=== PATIENT | female | born 1935 | race Caucasian/White ===

== ENCOUNTER 2018-03-13 13:01 | Inpatient (IN) | payer MEDICARE, OTHER ==
[~2018-03-13] VITALS: Ht 152.4 cm; Wt 60.1 kg
--- NOTE | ~2018-03-13 | EKG ---
[place], [place] ELECTROCARDIOGRAM REPORT NAME: MARI NAVARRO UNIT #: [id number] ROOM: 411 DOCTOR: CALI DRAFT REPORT BIRTHDATE: [birth year] [facility] Test Date: 2018-03-13 Test Time: 15:06:36 Pat Name: MARI NAVARRO Department: Room: 411 Gender: F Shirrer: Saige Carl : 1935 Requested By: STEPHANIE MUSA PA-C Order Number: [id number] Reading MD: Kristy Russell MD Measurements Intervals [place] Rate: 68 P: 46 DE: 167 QRS: -19 QRSD: 106 T: -9 QT: 397 QTc: 423 Interpretive Statements Sinus rhythm Left ventricular hypertrophy Inferior infarct, age indeterminate Anterior Q waves, possibly due to LVH Electronically Signed On 03-14-2018 11:10:57 PST by Kristy Russell MD CM:EKGRPT:ELECTROCARDIOGRAM REPORT [id number] STEPHANIE MUSA PA-C EPIPHANY DRAFT REPORT STEPHANIE MUSA PA-C
[~2018-03-13 13:01] MED LIST: 'zithromax250 MG PO; ASPIRIN162 MG PO; ATIVAN0.5 MG PO; CIPROFLOXACIN500 MG PO; DELTASONE10 MG PO; FISH OIL1000 MG PO; IMDUR SA60 M1 PO; MOTRIN800 MG PO; PEPCID20 MG PO; PLAVIX75 MG PO; PREDNISONE5 MG PO; SIMVASTATIN10 MG PO; ZIAC 5 MG-6.251 TAB PO
[2018-03-13 13:07] VITALS: BP 163/37
[2018-03-13 14:49] LABS: BILIRUBIN NEGATIVE (NEGATIVE); BLOOD NEGATIVE (NEGATIVE); CLARITY SL CLOUDY (CLEAR); COLOR YELLOW (YELLOW); GLUCOSE NEGATIVE (NEGATIVE); KETONE 1+ (NEGATIVE); LEUKO ESTERASE 1+ (NEGATIVE); NITRITE POSITIVE (NEGATIVE); SPECIFIC GRAVITY 1.015 (1.005-1.030); UROBILINOGEN 0.2 E.U./dl (0.2-1.0)
[2018-03-13 15:07] LABS: BACTERIA 4+; WBC 31-40 wbc/hpf (0-5)
[2018-03-13 15:38] LABS: BASO % 0.3 % (0.0-1.0); EOS % 0.3 % (1.0-4.0); HEMATOCRIT 32.9 % (37.0-47.0); HEMOGLOBIN 11.5 g/dl (12.0-16.0); LYMPH # 1.8 10*3/uL (1.3-4.4); LYMPH % 19.2 % (27.0-41.0); MEAN CELL VOLUME 94.5 fl (81.0-99.0); MEAN PLATELET VOLUME 9.3 fl (9.6-12.3); MONO % 10.7 % (3.0-9.0); NEUT # 6.5 10*3/uL (2.3-7.9); NEUT % 69.1 % (47.0-73.0); PLATELET COUNT AUTOMATED 261 10*3/uL (130-400); RED BLOOD COUNT 3.48 10*6/uL (4.10-5.10); WHITE BLOOD COUNT 9.4 10*3/uL (4.8-10.8)
[2018-03-13 15:55] LABS: ALBUMIN 3.4 gm/dl (3.1-4.5); ALKALINE PHOSPHATASE 68 U/L (45-117); BUN 27 mg/dl (7-24); CHLORIDE 104 mmol/L (98-107); POTASSIUM 3.3 mmol/L (3.5-5.1); SGOT/AST 29 IU/L (3-35); SGPT/ALT 32 U/L (12-78); SODIUM 140 mmol/L (136-145)
[2018-03-13 16:00] VITALS: BP 139/44
[2018-03-13 16:02] LABS: TROPONIN I < 0.015 ng/ml (<0.045)
[2018-03-13 20:00] VITALS: BP 110/50
[2018-03-14] VITALS: BP 133/47
[2018-03-14 06:26] LABS: BASO % 0.6 % (0.0-1.0); EOS # 0.1 10*3/uL (0.0-0.4); EOS % 1.4 % (1.0-4.0); HEMATOCRIT 31.4 % (37.0-47.0); HEMOGLOBIN 10.9 g/dl (12.0-16.0); LYMPH # 2.1 10*3/uL (1.3-4.4); LYMPH % 29.8 % (27.0-41.0); MEAN CELL VOLUME 94.9 fl (81.0-99.0); MEAN CORPUSCULAR HGB 32.9 pg (27.0-31.0); MEAN CORPUSCULAR HGB CONC 34.7 g/dl (33.0-37.0); MEAN PLATELET VOLUME 9.9 fl (9.6-12.3); MONO # 0.7 10*3/uL (0.1-1.0); MONO % 9.3 % (3.0-9.0); NEUT # 4.1 10*3/uL (2.3-7.9); NEUT % 58.6 % (47.0-73.0); PLATELET COUNT AUTOMATED 251 10*3/uL (130-400); RED BLOOD COUNT 3.31 10*6/uL (4.10-5.10); RED CELL DISTRI WIDTH 12.8 % (0-14.5)
[2018-03-14 06:42] LABS: BUN 30 mg/dl (7-24); CHLORIDE 102 mmol/L (98-107); CHOLESTEROL 159 mg/dL (<200); HDL CHOLESTEROL 43 mg/dl (40-60); LDL CHOLESTEROL 103 mg/dL (9-159); SODIUM 138 mmol/L (136-145); TRIGLYCERIDES 63 mg/dl (<150); VLDL CHOLESTEROL 13 mg/dL (6-40)
[2018-03-14 06:56] LABS: ACT PARTIAL THROMBO TIME 24.5 SECONDS (20.8-31.5)
[2018-03-14 08:00] VITALS: BP 120/62
[2018-03-14 08:40] LABS: VITAMIN D, 25-HYDROXY 43.4 ng/mL (30-100)
[2018-03-14 12:00] VITALS: BP 126/63
[2018-03-14 16:00] VITALS: BP 151/65
[2018-03-14 20:00] VITALS: BP 144/42
[2018-03-15] VITALS: BP 139/64
[2018-03-15 06:36] LABS: BASO % 0.5 % (0.0-1.0); EOS # 0.1 10*3/uL (0.0-0.4); HEMATOCRIT 34.2 % (37.0-47.0); HEMOGLOBIN 11.5 g/dl (12.0-16.0); LYMPH # 2.2 10*3/uL (1.3-4.4); LYMPH % 28.6 % (27.0-41.0); MEAN CELL VOLUME 95.8 fl (81.0-99.0); MEAN CORPUSCULAR HGB 32.2 pg (27.0-31.0); MEAN CORPUSCULAR HGB CONC 33.6 g/dl (33.0-37.0); MEAN PLATELET VOLUME 9.7 fl (9.6-12.3); MONO # 0.9 10*3/uL (0.1-1.0); MONO % 11.7 % (3.0-9.0); NEUT # 4.5 10*3/uL (2.3-7.9); NEUT % 57.8 % (47.0-73.0); PLATELET COUNT AUTOMATED 273 10*3/uL (130-400); RED BLOOD COUNT 3.57 10*6/uL (4.10-5.10); RED CELL DISTRI WIDTH 12.7 % (0-14.5); WHITE BLOOD COUNT 7.8 10*3/uL (4.8-10.8)
[2018-03-15 06:51] LABS: BUN 25 mg/dl (7-24); CHLORIDE 103 mmol/L (98-107); CREATININE 0.73 mg/dL (0.55-1.02); SODIUM 136 mmol/L (136-145)
[2018-03-15 08:00] VITALS: BP 127/74
[2018-03-15 12:00] VITALS: BP 144/51
[2018-03-15 16:00] VITALS: BP 145/48
[2018-03-15 20:00] VITALS: BP 146/69
[2018-03-16] VITALS: BP 110/62
[2018-03-16] MEDS ORDERED: CIPRO500 MG PO (10:31)
== END 2018-03-16 12:42 | disposition other institution (70) | DRG 689 ==
LOC: ED 13:01 → EDHOLD 16:40 → 4E 16:40
PROVIDERS: Emergency Medicine; Internal Medicine; Physician Assistant; Student in an Organized Health Care Education/Training Program
DX: N30.00 Acute cystitis without hematuria (principal); G93.41 Metabolic encephalopathy; E87.6 Hypokalemia; I10 Essential (primary) hypertension; E78.5 Hyperlipidemia, unspecified; I25.10 Atherosclerotic heart disease of native coronary artery without angina pectoris; M79.602 Pain in left arm; M79.605 Pain in left leg; M47.9 Spondylosis, unspecified; B96.20 Unspecified Escherichia coli [E. coli] as the cause of diseases classified elsewhere; F41.9 Anxiety disorder, unspecified; D64.9 Anemia, unspecified; W06.XXXA Fall from bed, initial encounter; Z87.440 Personal history of urinary (tract) infections; Z88.2 Allergy status to sulfonamides; Z88.8 Allergy status to other drugs, medicaments and biological substances; Z88.1 Allergy status to other antibiotic agents; Z91.041 Radiographic dye allergy status; Z90.49 Acquired absence of other specified parts of digestive tract; Z95.5 Presence of coronary angioplasty implant and graft; Z87.891 Personal history of nicotine dependence; Z82.49 Family history of ischemic heart disease and other diseases of the circulatory system; Z82.3 Family history of stroke; Z80.9 Family history of malignant neoplasm, unspecified; Y93.89 Activity, other specified; Y92.89 Other specified places as the place of occurrence of the external cause; Y99.8 Other external cause status; Z91.048 Other nonmedicinal substance allergy status; Z79.02 Long term (current) use of antithrombotics/antiplatelets; Z79.899 Other long term (current) drug therapy

== ENCOUNTER 2018-04-15 09:39 | Emergency (ER) | payer MEDICARE, OTHER ==
[~2018-04-15] VITALS: Ht 154.9 cm; Wt 63.5 kg
[~2018-04-15 09:39] MED LIST changes: +CIPRO500 MG PO
[2018-04-15 09:58] LABS: BASO % 0.5 % (0.0-1.0); EOS # 0.1 10*3/uL (0.0-0.4); EOS % 2.5 % (1.0-4.0); HEMATOCRIT 33.1 % (37.0-47.0); HEMOGLOBIN 11.4 g/dl (12.0-16.0); LYMPH # 1.5 10*3/uL (1.3-4.4); LYMPH % 26.9 % (27.0-41.0); MEAN CELL VOLUME 94.3 fl (81.0-99.0); MEAN CORPUSCULAR HGB 32.5 pg (27.0-31.0); MEAN CORPUSCULAR HGB CONC 34.4 g/dl (33.0-37.0); MEAN PLATELET VOLUME 9.2 fl (9.6-12.3); MONO # 0.7 10*3/uL (0.1-1.0); MONO % 11.7 % (3.0-9.0); NEUT # 3.3 10*3/uL (2.3-7.9); NEUT % 58.2 % (47.0-73.0); PLATELET COUNT AUTOMATED 339 10*3/uL (130-400); RED BLOOD COUNT 3.51 10*6/uL (4.10-5.10); RED CELL DISTRI WIDTH 12.4 % (0-14.5); WHITE BLOOD COUNT 5.6 10*3/uL (4.8-10.8)
[2018-04-15 10:14] LABS: ALBUMIN 2.7 gm/dl (3.1-4.5); ALKALINE PHOSPHATASE 81 U/L (45-117); BUN 22 mg/dl (7-24); CHLORIDE 106 mmol/L (98-107); CREATININE 0.62 mg/dL (0.55-1.02); POTASSIUM 3.9 mmol/L (3.5-5.1); SGOT/AST 16 IU/L (3-35); SGPT/ALT 16 U/L (12-78); SODIUM 142 mmol/L (136-145); TOTAL PROTEIN 6.5 gm/dL (6.4-8.2)
[2018-04-15 11:35] LABS: BILIRUBIN NEGATIVE (NEGATIVE); BLOOD NEGATIVE (NEGATIVE); CLARITY CLEAR (CLEAR); COLOR YELLOW (YELLOW); GLUCOSE NEGATIVE (NEGATIVE); KETONE NEGATIVE (NEGATIVE); LEUKO ESTERASE NEGATIVE (NEGATIVE); NITRITE NEGATIVE (NEGATIVE)
[2018-04-15 11:54] LABS: BACTERIA 3+; EPITHELIAL CELLS 0-2; WBC 0-2 wbc/hpf (0-5)
== END 2018-04-15 12:25 | disposition home or self-care (01) ==
LOC: ED 09:39
PROVIDERS: Emergency Medicine
DX: G45.9 Transient cerebral ischemic attack, unspecified (principal); I25.10 Atherosclerotic heart disease of native coronary artery without angina pectoris; E78.5 Hyperlipidemia, unspecified; I10 Essential (primary) hypertension; Z86.718 Personal history of other venous thrombosis and embolism; Z87.891 Personal history of nicotine dependence; Z79.899 Other long term (current) drug therapy; Z91.041 Radiographic dye allergy status; Z88.2 Allergy status to sulfonamides; Z88.1 Allergy status to other antibiotic agents; Z88.8 Allergy status to other drugs, medicaments and biological substances

== ENCOUNTER 2018-04-19 23:57 | Inpatient (IN) | payer MEDICARE, OTHER ==
[~2018-04-19] VITALS: Ht 154.9 cm; Wt 56.9 kg
--- NOTE | ~2018-04-19 | PR ---
[place], [place] PROGRESS NOTE NAME: MARI NAVARRO UNIT #: [id number] ROOM: 532 DOCTOR: YONY GUERRERO,JULY BIRTHDATE: [birth year] DOS: 04/24/2018 SUBJECTIVE: The patient is an 83-year-old female who is being followed for urinary tract infection. She was originally positive for VRE reportedly at the [place] [facility] she was at, she was given Macrobid, she developed lethargy and was brought to the ER as well as a fever. Her admitting urine culture here is growing a fairly sensitive Providencia; however, she was given Merrem due to multiple drug allergies. Her MRSA screen was also positive. Blood cultures remain sterile. She is alert, confused, somewhat poor historian though she does state she is having difficulty urinating. Denies any nausea, vomiting, or diarrhea. No rash or itch. No cough or shortness of breath. She has been afebrile. LABORATORY DATA: Cultures as reviewed above. WBC 6.3, platelets 293. BUN 9, creatinine 0.42. AST 54, ALT 69. PHYSICAL EXAMINATION: VITAL SIGNS: Temperature 97.9, pulse 68, respirations 16, and BP 143/50. GENERAL: An 83-year-old female, alert, confused, in no acute distress. HEAD, EYES, EARS, NOSE, AND THROAT: Normocephalic. Mucous membranes tacky. No thrush. LUNGS: Clear to auscultation bilaterally. Respirations even and unlabored. HEART: Regular rhythm. No murmur appreciated. ABDOMEN: Soft. Has some lower abdominal discomfort with possibly a distended bladder palpable. EXTREMITIES: +2 edema bilateral lower extremities. SKIN: Warm, dry, free of rashes. ASSESSMENT: Urinary tract infection, currently with Providencia. PLAN: We will continue the Merrem, would treat for a total of 7 days. However, she does need to have a bladder scan to evaluate for possibly urinary retention. JULY YOLANDA BHAKTA [place], [place] PROGRESS NOTE NAME: MARI NAVARRO UNIT #: [id number] ROOM: 532 DOCTOR: YONY GUERRERO,JULY BIRTHDATE: [birth year] Mirlande Starks MD CM:PNANA LAURA [id number] JULY YONY GUERRERO 04/24/18 1226 interface
--- NOTE | ~2018-04-19 | CON ---
[place], [place] REPORT OF CONSULTATION NAME: [facility]ARR[id number] UNIT #: [id number] ROOM: 532 DOCTOR: YONY GUERRERO,JULY BIRTHDATE: [birth year] DOS: 04/23/2018 HISTORY OF PRESENT ILLNESS: The patient is an 83-year-old female who was admitted from [place] on 04/20/2018 with fevers reportedly up to 104 and low oxygen saturation. She had been receiving Macrobid for VRE UTI at [place]. The patient herself is a very poor historian and cannot give me any information regarding her history. She is not aware that she came in from a facility. She does not remember the circumstances for how she came here. She cannot tell me it is 2018, does not know who the President is, etc. She states she feels well now. Denies any fevers, chills, nausea, vomiting, or diarrhea. No pain. Denies dysuria or frequency. Her last fever was on 04/20/2018 up to a 103.1 here in the hospital. Her admitting WBCs were 11.3. She had another set done later in the day on 04/20/2018 which was 8.4. She was dehydrated on admission with BUN of 46 and creatinine of 1.29, those have since improved, on the 04/21 BUN was down to 26, creatinine down to 0.64. Urinalysis is not very impressive. She was positive for nitrites, but only trace leukocyte esterase and 5-10 wbc's per high powered field. She has been receiving Merrem since yesterday. She has multiple drug allergies. Reviewing her cultures and blood cultures were all sterile. Urine culture with a fairly sensitive Providencia. She was negative for influenza A and B. MRSA screen of her nares was positive. ID consulted for UTI with multiple drug allergies. Her admitting chest x-ray was clear. PAST MEDICAL HISTORY: As above as well as anxiety, coronary artery disease, primary hypertension, hyperlipidemia, normocytic anemia, TIA, , cholecystectomy, and coronary stenting. SOCIAL HISTORY: She is a reformed smoker. Social alcohol use. No illicit drug use. FAMILY MEDICAL HISTORY: Mother had coronary artery disease. Father's health history is unknown. History is obtained per review of the chart given the patient's confusion. ALLERGIES: INCLUDE IVP DYE, SULFA, TAPE, AMOXICILLIN, CEFDINIR,0 AND LISINOPRIL. WHEN QUESTIONED, THE PATIENT DOES NOT KNOW OF ANY OF THESE ALLERGIES NOR OF HER REACTION TO ANY OF THE MEDICATIONS. CURRENT MEDICATIONS: Include Merrem, Zocor, Ativan, fish oil, Pepcid, Plavix, Zofran, Tylenol, Dulcolax, and [place]. LABORATORY DATA: Cultures as reviewed above. Again, WBC is 8.4, platelets 283. BUN 26 and creatinine 0.64. No labs done since 04/21/2018. REVIEW OF SYSTEMS: As above in the history of present illness. The patient is likely incontinent of urine. She is wearing adult incontinence garment. Further review of systems is unremarkable. She states she feels well. PHYSICAL EXAMINATION: VITAL SIGNS: Temperature 98.2, pulse 84, respirations 16, and BP 153/60. GENERAL: An 83-year-old female, in no acute distress, nontoxic in [place], [place] REPORT OF CONSULTATION NAME: MARI NAVARRO UNIT #: [id number] ROOM: [facility] DOCTOR: YONY GUERREROJULY BIRTHDATE: [birth year] appearance. HEAD, EYES, EARS, NOSE, AND THROAT: Normocephalic, no thrush. NECK: Supple. LUNGS: Clear to auscultation bilaterally. Respirations even and unlabored. HEART: Regular rhythm. No murmur appreciated. ABDOMEN: Soft, nontender, nondistended, positive bowel sounds. EXTREMITIES: Trace edema bilateral lower extremities. SKIN: Warm, dry, free of rashes. ASSESSMENT AND PLAN: Questionable urinary tract infection. She was febrile. She is currently on Merrem day #2. She could be changed over to ertapenem for ease of dosing upon discharge at 1 g IV q. 24 hours or continued on the Merrem, treat for a total of 7 days. Unfortunately given her multiple drug allergies, there is not a reasonable oral alternative at this time, could be discharged from an infectious disease standpoint, and can manage her additional 5 days of antibiotics. I agree with the assessment and plan made by the nurse practitioner, Herminia Bhakta. I reviewed the labs and imaging and made the necessary changes in the note. HERMINIA YOLANDA BHAKTA Mirlande Starks MD CM:CONSTR:REPORT OF CONSULTATION 1647 05/09/18 0521 interface
--- NOTE | ~2018-04-19 | CON ---
[place], [place] REPORT OF CONSULTATION NAME: MARI NAVARRO UNIT #: [id number] ROOM: 532 DOCTOR: MIRLANDE MCCOY MD BIRTHDATE: [birth year] DOS: 04/23/2018 ADDENDUM I agree with the assessment and plan made by the nurse practitioner, Herminia Russell. I reviewed the labs and imaging and made the necessary changes in the note. Mirlande Mccoy MD CM:CONSTR:REPORT OF CONSULTATION 1701 05/09/18 0522 interface
--- NOTE | ~2018-04-19 | PR ---
[place], [place] PROGRESS NOTE NAME: MARI NAVARRO UNIT #: [id number] ROOM: 532 DOCTOR: MIRLANDE MCCOY MD BIRTHDATE: [birth year] DOS: 04/24/2018 I agree with the assessment and plan made by Herminia Russell. I reviewed the labs and imaging, made the necessary changes in the note. Mirlande Mccoy MD CM:PNTRANS [id number] MIRLANDE MCCOY MD 05/25/18 0853 interface
--- NOTE | ~2018-04-19 | EKG ---
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
[2018-04-20] VITALS (13 sets, daily range): BP systolic 88–141; BP diastolic 31–60
[2018-04-20 00:16] LABS: BILIRUBIN NEGATIVE (NEGATIVE); BLOOD NEGATIVE (NEGATIVE); CLARITY CLOUDY (CLEAR); COLOR YELLOW (YELLOW); GLUCOSE NEGATIVE (NEGATIVE); KETONE 1+ (NEGATIVE); LEUKO ESTERASE TRACE (NEGATIVE); NITRITE POSITIVE (NEGATIVE); PH 7.5 (5.0-9.0); SPECIFIC GRAVITY 1.015 (1.005-1.030); UROBILINOGEN 0.2 E.U./dl (0.2-1.0)
[2018-04-20 00:20] LABS: BACTERIA 4+; EPITHELIAL CELLS 0-2; MUCOUS TRACE; RBC 0-2 rbc/hpf (0-2)
[2018-04-20 00:29] LABS: BASO % 0.2 % (0.0-1.0); EOS # 0.2 10*3/uL (0.0-0.4); EOS % 1.4 % (1.0-4.0); LYMPH # 0.4 10*3/uL (1.3-4.4); LYMPH % 3.4 % (27.0-41.0); MEAN CELL VOLUME 92.2 fl (81.0-99.0); MEAN CORPUSCULAR HGB 31.7 pg (27.0-31.0); MEAN CORPUSCULAR HGB CONC 34.4 g/dl (33.0-37.0); MEAN PLATELET VOLUME 9.3 fl (9.6-12.3); MONO # 0.7 10*3/uL (0.1-1.0); MONO % 5.9 % (3.0-9.0); NEUT % 88.7 % (47.0-73.0); PLATELET COUNT AUTOMATED 333 10*3/uL (130-400); RED BLOOD COUNT 3.47 10*6/uL (4.10-5.10); RED CELL DISTRI WIDTH 12.3 % (0-14.5); WHITE BLOOD COUNT 11.3 10*3/uL (4.8-10.8)
[2018-04-20 00:40] LABS: ACT PARTIAL THROMBO TIME 24.7 SECONDS (20.8-31.5); INTERNATIONAL NORM RATIO 1.1 (2.0-3.5)
[2018-04-20 00:47] LABS: ALBUMIN 2.8 gm/dl (3.1-4.5); CREATININE 1.15 mg/dL (0.55-1.02); POTASSIUM 3.7 mmol/L (3.5-5.1); TOTAL PROTEIN 6.9 gm/dL (6.4-8.2); TROPONIN I 0.018 ng/ml (<0.045)
--- NOTE | 2018-04-20 02:00 | NUR ---
MRSA SWAB DONE AT THIS TIME
--- NOTE | 2018-04-20 02:30 | NUR ---
Time: 229 A 83 year old FEMALE admitted to 5E under services of MASON PRATT DO. Pt. arrived via bed from ER. Chief complaint: UTI, ALTERED MENTAL STATUS. PATIENT ORIENTED TO FLOOR 5E CALL LIGHT SYSTEM REVIEWED AND DEMONSTRATED. DEBORAH RAMIRES
[2018-04-20] MEDS ORDERED: MACRODANTIN100 M1 PO (02:59)
[2018-04-20] MEDS ORDERED: MILK OF MA400 MG/5 M PO (03:00)
[2018-04-20] MEDS ORDERED: K-TAB20 MEQ PO (03:01)
[2018-04-20] MEDS ORDERED: PAIN RELIEVER325 MG PO (03:02)
--- NOTE | 2018-04-20 03:30 | NUR ---
DR. CUEVAS NOTIFIED THAT PATIENT IS ON THE FLOOR AND MED REC IS UP-TO-DATE. PATIENT CONDITION, SYMPTOMS AND HX REVIEWED. PATIENT WOUND TO RIGHT BUTTOCKS NOTED. NO FURTHER ORDERS GIVEN AT THIS TIME.
[2018-04-20 05:56] LABS: BASO % 0.2 % (0.0-1.0); EOS # 0.2 10*3/uL (0.0-0.4); EOS % 2.4 % (1.0-4.0); HEMATOCRIT 32.3 % (37.0-47.0); HEMOGLOBIN 10.9 g/dl (12.0-16.0); LYMPH # 0.4 10*3/uL (1.3-4.4); MEAN CELL VOLUME 94.2 fl (81.0-99.0); MEAN CORPUSCULAR HGB 31.8 pg (27.0-31.0); MEAN CORPUSCULAR HGB CONC 33.7 g/dl (33.0-37.0); MEAN PLATELET VOLUME 8.9 fl (9.6-12.3); MONO # 0.5 10*3/uL (0.1-1.0); MONO % 5.9 % (3.0-9.0); NEUT # 7.2 10*3/uL (2.3-7.9); NEUT % 85.9 % (47.0-73.0); PLATELET COUNT AUTOMATED 283 10*3/uL (130-400); RED BLOOD COUNT 3.43 10*6/uL (4.10-5.10); RED CELL DISTRI WIDTH 12.4 % (0-14.5); WHITE BLOOD COUNT 8.4 10*3/uL (4.8-10.8)
[2018-04-20 06:19] LABS: ALBUMIN 2.4 gm/dl (3.1-4.5); CREATININE 1.29 mg/dL (0.55-1.02); POTASSIUM 3.6 mmol/L (3.5-5.1); TOTAL PROTEIN 6.5 gm/dL (6.4-8.2)
--- NOTE | 2018-04-20 09:58 | NUR ---
HEAL PROTECTORS PLACED ON PATIENT AT THIS TIME PER DR. HERNANDEZ.
--- NOTE | 2018-04-20 12:55 | NUR ---
RAMONMARI Lisseth [id number] Please refer to the physician's history and physical for past medical history, comorbid conditions, and allergies. Diagnosis: UTI ALTERED MENTAL STATUS Tom Score: 12,HIGH RISK WOUND DESCRIPTIONS: Location of the wound: right buttocks Type of wound: stage 2 Thickness: Partial Size: 1.5cm x 1.2cm x 0.1cm Tunneling: none Undermining: none Sinus Tract: none Presence of Exudate: Serosanguineous Amount: Light Color: Red Odor: None Periwound Skin Appearance: Erythema Wound edges: approximated Pain (associated with wound): none at time of assessment How does patient state this happened? pt is unsure how she got this area Bilateral heels are red and blanchable at time of assessment no open areas noted. Surface the patient is resting on: Isoflex SKIN PREVENTION RECOMMENDATION: 1. Pressure redistribution support surface as appropriate 2. Elevate heels 3. Remove boots/TEDS every shift and reapply 4. Head of bed 30 degrees as tolerated 5. Assess nutrition and hydration 6. Manage moisture 7. Avoid the use of containment devices while in bed 8. Use absorptive products on surfaces limit layers of linens on bed 9. Turn and reposition every 1-2 hours in bed and every 1 hour in chair as tolerated 10. Weight shifts every 15 minutes while up in chair 11. Offloading with pillows or device to keep heels elevated off bed 12. Monitor skin at least every shift 13. Inspect under medical devices twice a day WOUND TREATMENT RECOMMENDATIONS: wheelchair cushion while out of bed heel raiser pro boot while in bed stage 2 guidlines: Cleanse right buttocks with nss and apply sureprep around the wound hydrogel to wound bed and cover with optifoam gentle.
--- NOTE | 2018-04-20 13:16 | NUR ---
Recommend follow up for wound care in outpatient setting patient being discharge to another facility at this time.
--- NOTE | 2018-04-20 14:02 | NUR ---
Dr. Otto notified of wound care recommendations.
--- NOTE | 2018-04-20 15:48 | NUR ---
Nursing screen received and chart review completed. Consider Occupational Therapy evaluation once stable. Thank you. Allegra Sapp OTR/l
[2018-04-21] VITALS: BP 129/56
[2018-04-21 06:38] LABS: CHLORIDE 104 mmol/L (98-107); CREATININE 0.64 mg/dL (0.55-1.02); POTASSIUM 2.9 mmol/L (3.5-5.1); SODIUM 138 mmol/L (136-145)
[2018-04-21 06:44] LABS: BUN 26 mg/dl (7-24)
--- NOTE | 2018-04-21 07:21 | NUR ---
Patient is online merchant care at [facility], patient is ok to return when medically stable for discharge.
--- NOTE | 2018-04-21 11:19 | NUR ---
PT IS USP CARE AT [facility] AND CAN RETURN WHEN MEDICALLLY STABLE.
[2018-04-21 12:00] VITALS: BP 132/43
[2018-04-21 16:00] VITALS: BP 124/52
[2018-04-21 20:00] VITALS: BP 132/40
--- NOTE | 2018-04-21 20:18 | NUR ---
NOTIFIED DR. MINA THAT PATIENTS REPEAT POTASSIUM WAS 3.5
[2018-04-22] VITALS: BP 139/47
--- NOTE | 2018-04-22 06:40 | NUR ---
PATIENTS IV CAME OUT AT THIS TIME. RESTARTED IN THE RIGHT ARM #22 GAUGE. PATIENT REFUSING TO GET UP IN CHAIR AT THIS TIME, SOBBING UNCONTROLLABLY. PA STATED THAT SHE WOULD GET HER UP LATER
[2018-04-22 12:00] VITALS: BP 138/48
--- NOTE | 2018-04-22 12:00 | NUR ---
ATTEMPT TO GET PATIENT UP IN CHAIR SON WAS PRESENT PATIENT REFUSED CRIED AND YELLED.
[2018-04-22 16:00] VITALS: BP 162/48
[2018-04-22 20:00] VITALS: BP 142/36
[2018-04-23] VITALS: BP 145/39
--- NOTE | 2018-04-23 02:54 | NUR ---
PATIENT RESTING IN BED ON RIGHT SIDE WITH EYES CLOSED. RESPIRATIONS ARE EASY AND REGULAR. NO DISTRESS IS NOTED. CALL LIGHT IS WITHIN REACH. WILL MONITOR.
--- NOTE | 2018-04-23 07:05 | NUR ---
BEDSIDE REPORT OBTAINED FROM CATRACHO. PATIENT APPEARS TO BE ASLEEP, EYES CLOSED. NO S&S OF DISTRESS NOTED, RESP ARE ERND ON ROOM AIR. BED IS LOCKED IN LOWEST POSITION, CALL LIGTH LEFT WITHIN REACH.
[2018-04-23 08:00] VITALS: BP 152/50
--- NOTE | 2018-04-23 08:00 | NUR ---
LEADS REEMOVED BY PATIENT. LEADS PUT BACK INTO PLACE.
--- NOTE | 2018-04-23 11:30 | NUR ---
PATIENT REMOVES LEADS FROM DIRECTOR OF CLAIMS. LEADS PLACED BACK ON.
[2018-04-23 12:00] VITALS: BP 130/54
[2018-04-23 16:00] VITALS: BP 153/60
[2018-04-23 20:00] VITALS: BP 150/51
[2018-04-24] VITALS: BP 142/47
[2018-04-24 06:59] LABS: BASO % 0.5 % (0.0-1.0); EOS # 0.2 10*3/uL (0.0-0.4); EOS % 3.7 % (1.0-4.0); HEMATOCRIT 28.9 % (37.0-47.0); HEMOGLOBIN 9.8 g/dl (12.0-16.0); LYMPH # 2.2 10*3/uL (1.3-4.4); LYMPH % 34.3 % (27.0-41.0); MEAN CELL VOLUME 92.9 fl (81.0-99.0); MEAN CORPUSCULAR HGB 31.5 pg (27.0-31.0); MEAN CORPUSCULAR HGB CONC 33.9 g/dl (33.0-37.0); MEAN PLATELET VOLUME 9.3 fl (9.6-12.3); MONO # 0.7 10*3/uL (0.1-1.0); MONO % 11.3 % (3.0-9.0); NEUT # 3.1 10*3/uL (2.3-7.9); NEUT % 49.7 % (47.0-73.0); PLATELET COUNT AUTOMATED 293 10*3/uL (130-400); RED BLOOD COUNT 3.11 10*6/uL (4.10-5.10); RED CELL DISTRI WIDTH 13.3 % (0-14.5); WHITE BLOOD COUNT 6.3 10*3/uL (4.8-10.8)
--- NOTE | 2018-04-24 07:05 | NUR ---
BEDSIDE REPORT OBTAINED FROM BORIS-HALI. PATIENT APPEARS TO BE ASLEEP, EYES CLOSED. NO S&S OF DISTRESS NOTED, RESP ARE ERND ON ROOM AIR. BED IS LOCKED IN LOWEST POSITION, ALARM MAINTAINED. CALL LIGHT LEFT WITHIN REACH.
[2018-04-24 07:14] LABS: ALBUMIN 2.1 gm/dl (3.1-4.5); ALKALINE PHOSPHATASE 134 U/L (45-117); BUN 9 mg/dl (7-24); CHLORIDE 108 mmol/L (98-107); CREATININE 0.42 mg/dL (0.55-1.02); PHOSPHOROUS 3.3 mg/dL (2.5-4.9); POTASSIUM 2.9 mmol/L (3.5-5.1); SGOT/AST 54 IU/L (3-35); SGPT/ALT 69 U/L (12-78); SODIUM 143 mmol/L (136-145); TOTAL PROTEIN 5.2 gm/dL (6.4-8.2)
[2018-04-24 08:00] VITALS: BP 143/50; BP 152/58
--- NOTE | 2018-04-24 08:09 | NUR ---
MARIA VICTORIA-IT INFRASTRUCTURE SPECIALIST INFORMED OF POTASSIUM LEVEL OF 2.9. [facility]
--- NOTE | 2018-04-24 08:23 | NUR ---
Patient is remote inpatient coder care at [facility] and can return when medically stable for discharge.
--- NOTE | 2018-04-24 10:58 | NUR ---
Patient comes from [facility] short term skilled, patient is ok to return when medically stable for discharge
--- NOTE | 2018-04-24 11:25 | NUR ---
RUTHANN REQUESTED TYLENOL FROM BEING OSRE FROM BEING MOVED AROUND DURING REPOSITIONING. PRN GIVEN, WILL MONITOR.
[2018-04-24 12:00] VITALS: BP 153/48
--- NOTE | 2018-04-24 12:25 | NUR ---
PATIENT STATES TYLENOL EFFECTIVE.
--- NOTE | 2018-04-24 12:40 | NUR ---
PER ID ORDERS, BLADDERSCAN COMPLETED SHOWED [id number].
--- NOTE | 2018-04-24 13:53 | NUR ---
ID ARLENE-SHIPPER/RECEIVER INFORMED OF BLADDER SCAN RESULTS. INFORMED THAT PATIENT STATED SHE HAD TO PEE BUT HAS YET TO GO. ALSO, INFORMED THAT PATIENT YELLED AT ME AND STATED "I DON'T HAVE A PROBLEM NOT PEEING, I PEE TOO MUCH!" ARLENE STATE THIS IS NOT WHAT SHE TOLD HER EARLIER. CAPRICE INFORMED TO PLACE A POST-VOID RESIDUAL.
--- NOTE | 2018-04-24 14:35 | NUR ---
DISCUSSED WITH IF WANTING PVR OR JUST A BLADDER SCAN. STATED TO GO AHEAD AND BLADDER SCAN HER NOW.
--- NOTE | 2018-04-24 14:45 | NUR ---
POST VOID RESIDUAL OBTAINED, 144CC OF URINE REMAINS.
--- NOTE | 2018-04-24 14:50 | NUR ---
[facility] CTIOUS DISEASE OFFICE CALLED AND LEFT MESSAGE FOR JULY- OF PVR RESULTS OF 144
--- NOTE | 2018-04-24 14:52 | NUR ---
DRESSING CHANGE COMPLETED TO RIGHT BUTTOCK. PATIENT TOLERATED WELL.
[2018-04-24 16:00] VITALS: BP 132/56
[2018-04-24 20:00] VITALS: BP 146/61
[2018-04-25] VITALS: BP 155/52
--- NOTE | 2018-04-25 | NUR ---
RESTING IN BED. SKIN PALE, WARM & DRY. HEP LOCK INTACT TO RIGHT ANTECUBITAL; SITE ASYMPTOMATIC. LUNGS DIMINISHED WITH NO COUGH NOTED. ABDOMEN SOFT WITH NORMOACTIVE BOWEL SOUNDS NOTED. PULSE OX 100% ON ROOM AIR. NO DISTRESS NOTED. BED IN LOW POSITION & CALL LIGHT WITHIN REACH. BED ALARM ON.
--- NOTE | 2018-04-25 04:00 | NUR ---
RESTING IN BED WITH EYES CLOSED. CALL LIGHT WITHIN REACH; BED ALARM INTACT.
[2018-04-25 06:56] LABS: BUN 16 mg/dl (7-24); CHLORIDE 107 mmol/L (98-107); CREATININE 0.46 mg/dL (0.55-1.02); POTASSIUM 3.3 mmol/L (3.5-5.1); SODIUM 142 mmol/L (136-145)
--- NOTE | 2018-04-25 07:25 | NUR ---
BEDSIDE REPORT OBTAINED FROM PAT-RN. PATIENT IS ASLEEP, EYES CLOSED. NO S&S OF DISTRESS NOTED AT THIS TIME, RESP ARE ERND ON ROOM AIR. BED IS LOCKED IN LOWEST POSITION, CALL LIGHT LEFT WITHIN REACH.
[2018-04-25 08:00] VITALS: BP 150/48
--- NOTE | 2018-04-25 08:17 | NUR ---
PHYSICAL THERAPY Nursing screen received. PT orders also received. Thank you. Yaima Cerrato,PT
--- NOTE | 2018-04-25 09:20 | NUR ---
PATIENT MEDICATED WITH DULCOLAX D/T NO DOCUMENTED BM DURING STAY, PATIENT IS NOT AWARE OF LAST BM. STATES SHE HAD NO ABDOMINAL PAIN AND ABD IS NON-DISTENDED. WILL MONITOR.
--- NOTE | 2018-04-25 11:00 | NUR ---
Occupational Therapy evaluation completed on 5 with full eval to follow. Precautions include fall risk; bed alarm/personal alarm, limited BUE movement with resistance to movement at times, easily frustrated,acute debility. Patient is high complexity level 76477 via chart review, testing and evaluation. Recommend OT per pOC and return to SNF for rehab. Thank you. Mara Sapp OTR/l
--- NOTE | 2018-04-25 11:52 | NUR ---
PHYSICAL THERAPY PAtient evaluated on 5, full evaluation to follow. Continue with PT as per plan of care with fall, alarm, max (A) x 2 and angry/resistive to treatment precautions, will require LTAC versus SNF, pending progress and medical needs. PAtient is high complexity via chart review, tests and evaluation: 17152. Thank you for this referral. Yaima Cerrato,PT
[2018-04-25 12:00] VITALS: BP 150/49
--- NOTE | 2018-04-25 14:34 | NUR ---
Faxed medlist to [facility], she is checking cost of Merepenum. Will follow
[2018-04-25 16:00] VITALS: BP 141/49
--- NOTE | 2018-04-25 19:45 | NUR ---
PATIENT VOICES NO COMPLAINTS AT THIS TIME. NO SIGNS OF DISTRESS. BED ALARM ON. CALL LIGHT WITHIN REACH. WILL CONTINUE TO MONITOR.
[2018-04-25 20:00] VITALS: BP 140/58
[2018-04-26] VITALS: BP 151/50
--- NOTE | 2018-04-26 02:05 | NUR ---
24 HR chart check completed.
[2018-04-26 08:00] VITALS: BP 154/52
--- NOTE | 2018-04-26 08:26 | NUR ---
OT NOTE Pt was seen this A.M. 1:1 for 26 minute OT session. Upon arrival pt was supine in bed, pt identified by name and and had reports of pain in her LUE and BLE however would not answer where the exact location was and would not rate on 0-10 pain scale, pt became agitated when asked questions stating "I don't know." Pt transferred supine to sit EOB with maxA X 2. While sitting EOB challenged pt's sitting balance while having her weight shift and pt was able to maintain F-/F sitting balance throughout. Pt completed AROM to BUE over all planes of motion for 1 X 10 to increase ROM needed for increased I in self feeding tasks. Pt then transferred sit to supine with maxA X 2 where she was left with call light in hand, tray table in place, and bed alarm activated for safety. Continue with rec D/c plan to SNF. EUGENE Hand/Anika
--- NOTE | 2018-04-26 09:00 | NUR ---
PHYSICAL THERAPY Patient seen this am 1:1 for therapy visit and was supine in bed upon therapist arrival. Patient reports no c/o's pain and was a little "guarded" this session, requiring v/c to increase focus on task to improve performance. Patient transfers supine to sit EOB with MAX A x 2, tolerating static EOB sit x 10 minutes. Patient became a little agitated when asked attempt sit to stand transfer and requested to return to supine in bed. Patient remained in bed with call light, tray table and bed alarm for safety. Will continue per POC as tolerated, total treatment time 15 minutes. Adeel Roberson, PELLETIZER OPERATOR
--- NOTE | 2018-04-26 09:27 | NUR ---
WOUND CARE COMPLETED AT THIS TIME. PT TOLERATED WELL. BEDDING AND GOWN CHANGED. PT HAD LARGE BM. CALL LIGHT IN REACH. ISOLATION PRECAUTIONS MAINTAINED.
[2018-04-26 12:00] VITALS: BP 146/62
--- NOTE | 2018-04-26 14:32 | NUR ---
Received message from [facility]. She stated patient is ok to return with the Merepenum Q8 hours as long as the medication dc date is this Tuesday04/28/18 and no longer. Notified hositalist office.
[2018-04-26 16:00] VITALS: BP 135/50
[2018-04-26 20:00] VITALS: BP 129/74
[2018-04-27] VITALS: BP 142/43
--- NOTE | 2018-04-27 06:59 | NUR ---
RAMONMARI Lisseth [id number] Please refer to the physician's history and physical for past medical history, comorbid conditions, and allergies. Diagnosis: UTI ALTERED MENTAL STATUS Tmo Score: 12,HIGH RISK WOUND DESCRIPTIONS: Location of the wound: Right buttocks Type of wound: Stage 2 Thickness: Partial Size: 0.4cm x 0.3cm x 0.1cm Tunneling: none Undermining: none Sinus Tract: none Presence of Exudate: Serous Amount: Light Color: Red Odor: None Periwound Skin Appearance: Normal Wound edges: approximated Pain (associated with wound): none at time of assessment How does patient state this happened? pt unable to state how this happened Surface the patient is resting on: Isoflex SKIN PREVENTION RECOMMENDATION: 1. Pressure redistribution support surface as appropriate 2. Elevate heels 3. Remove boots/TEDS every shift and reapply 4. Head of bed 30 degrees as tolerated 5. Assess nutrition and hydration 6. Manage moisture 7. Avoid the use of containment devices while in bed 8. Use absorptive products on surfaces limit layers of linens on bed 9. Turn and reposition every 1-2 hours in bed and every 1 hour in chair as tolerated 10. Weight shifts every 15 minutes while up in chair 11. Offloading with pillows or device to keep heels elevated off bed 12. Monitor skin at least every shift 13. Inspect under medical devices twice a day WOUND TREATMENT RECOMMENDATIONS: Continue current orders.
[2018-04-27 08:00] VITALS: BP 147/72
--- NOTE | 2018-04-27 09:11 | NUR ---
ENCOURAGED PATIENT O GET OUT OF BED AND INTO CHAIR, PT REFUSING AT THIS TIME
--- NOTE | 2018-04-27 11:00 | NUR ---
PHYSICAL THERAPY Patient seen this am 1;1 for therapy visit and was supine in bed upon therapist arrival. Patient voices no c/o's pain this morning, however becomes very anxious if not allowed sufficient time to perform all therapy task. Patient transfers supine to sit EOB, Mod/Max A, tolerating EOB sit x 3 minutes, CGA. Patient is also very fearful of falling and needs therapist assurance she won't fall. Patient performed several sit to stand transfers, MAX/SWIMMING PROFESSOR x 2, demonstrating Poor upright posture, increased fatiuge while only tolerating < 25 seconds static stand. Patient returned to supine in bed and remained with call light, tray table and bed alarm for safety. Will continue per POC as tolerated, total treatment time 14 minutes. Adeel Roberson, WARHEAD MAINTENANCE SPECIALIST
--- NOTE | 2018-04-27 11:13 | NUR ---
OT NOTE Pt was seen this A.M. 1:1 for 24 minute OT session. Upon arrival pt was supine in bed, pt identified by name and . Pt had no complaints at this time. pt transferred supine to sit EOB with maxA X 2. While siting EOB challenged pt's sitting balance needed for increased I and enhanced safety and pt was able to maintain F- sitting balance throughout. Completed sit to stand transfers from bed level with modA X 2. Challenged pt's static standing tolerance needed for increased I in self care tasjs and functional transfers and pt was able to tolerate aprox 30 seconds at a time before sitting due to fatigue. pt transfered back into bed sit to supine with maxA X 2. Throughout entire session pt required extra time due to slow rate of performance and fear of falling requiring extra verbal prompts for relaxation. Pt was left supine in bed with call light in hand,, trya table in place, and bed alarm activated for safety. Continue with rec D/C plan to SNF. EUGENE Hand/Anika
[2018-04-27 12:00] VITALS: BP 131/49
--- NOTE | 2018-04-27 12:19 | NUR ---
PT CAN RETURN TO [facility] MEDICALLY STABLE.
[2018-04-27 16:00] VITALS: BP 151/48
--- NOTE | 2018-04-27 19:40 | NUR ---
24 HR chart check completed.
[2018-04-27 20:00] VITALS: BP 122/54
[2018-04-28] VITALS: BP 153/56
[2018-04-28 06:28] LABS: BASO # 0.1 10*3/uL (0.0-0.1); EOS # 0.1 10*3/uL (0.0-0.4); EOS % 1.9 % (1.0-4.0); HEMOGLOBIN 10.4 g/dl (12.0-16.0); LYMPH # 1.6 10*3/uL (1.3-4.4); LYMPH % 22.2 % (27.0-41.0); MEAN CELL VOLUME 94.2 fl (81.0-99.0); MEAN CORPUSCULAR HGB 31.6 pg (27.0-31.0); MEAN CORPUSCULAR HGB CONC 33.5 g/dl (33.0-37.0); MONO # 1.2 10*3/uL (0.1-1.0); MONO % 16.8 % (3.0-9.0); NEUT # 4.2 10*3/uL (2.3-7.9); NEUT % 57.1 % (47.0-73.0); PLATELET COUNT AUTOMATED 318 10*3/uL (130-400); RED BLOOD COUNT 3.29 10*6/uL (4.10-5.10); RED CELL DISTRI WIDTH 12.9 % (0-14.5); WHITE BLOOD COUNT 7.3 10*3/uL (4.8-10.8)
[2018-04-28 06:30] LABS: BUN 11 mg/dl (7-24); CHLORIDE 99 mmol/L (98-107); CREATININE 0.45 mg/dL (0.55-1.02); SODIUM 134 mmol/L (136-145)
--- NOTE | 2018-04-28 07:42 | NUR ---
Patient is short term rehab at [facility], she can return when medically stable for discharge.
--- NOTE | 2018-04-28 08:04 | NUR ---
Shift chart check completed.
--- NOTE | 2018-04-28 10:40 | NUR ---
OT NOTE Attempted to see pt this A.M. for OT session and upon arrival pt had reports of not feeling well and wanting to rest. Pt was becoming aggitated when questions were asked. No therapy provided at this time. Continue with POC as able. EUGENE Hand/Anika
--- NOTE | 2018-04-28 11:20 | NUR ---
PATIENT REFUSED DISCHARGE PICTURES.
--- NOTE | 2018-04-28 11:25 | NUR ---
IV REMOVED FOR DISCHARGE.
--- NOTE | 2018-04-28 11:30 | NUR ---
Discharge instructions reviewed with patient/family. Patient receptive and verbalizes understanding. Follow-up care arranged. Written instructions given to patient/family. PATIENT DISCHARGED WITH [facility] TO [facility]. STEPHANIE URIOSTEGUI
--- NOTE | 2018-04-28 11:30 | NUR ---
REPORT CALLED TO NURSE AT [facility].
--- NOTE | 2018-04-28 15:53 | NUR ---
PHYSICAL THERAPY CO-SIGN I approve of the Phyical Therapy notes written above. DEYSI FREED PT
--- NOTE | 2018-05-01 17:06 | NUR ---
OCCUPATIONAL THERAPY CO-SIGN I approve of the Occupational Therapy notes written above. LEX MUÑOZ OTR/Anika
== END 2018-04-28 11:30 | disposition other institution (70) | DRG 871 ==
LOC: ED 23:57 → 5E 04-20 01:17 → EDHOLD 04-20 01:17 → 5E 04-20 01:59
PROVIDERS: Internal Medicine; Physician Assistant; Registered Nurse; Student in an Organized Health Care Education/Training Program; ADMIT Emergency Medicine
DX: A41.9 Sepsis, unspecified organism (principal); N17.0 Acute kidney failure with tubular necrosis; E44.0 Moderate protein-calorie malnutrition; N30.01 Acute cystitis with hematuria; Z68.23 Body mass index [BMI] 23.0-23.9, adult; F41.9 Anxiety disorder, unspecified; D64.9 Anemia, unspecified; R73.9 Hyperglycemia, unspecified; R80.9 Proteinuria, unspecified; R82.4 Acetonuria; E86.0 Dehydration; E78.00 Pure hypercholesterolemia, unspecified; I25.10 Atherosclerotic heart disease of native coronary artery without angina pectoris; E78.5 Hyperlipidemia, unspecified; E87.6 Hypokalemia; I10 Essential (primary) hypertension; Z88.1 Allergy status to other antibiotic agents; Z91.041 Radiographic dye allergy status; Z88.2 Allergy status to sulfonamides; Z88.8 Allergy status to other drugs, medicaments and biological substances; Z91.048 Other nonmedicinal substance allergy status; Z98.891 History of uterine scar from previous surgery; Z90.49 Acquired absence of other specified parts of digestive tract; Z95.5 Presence of coronary angioplasty implant and graft; Z90.710 Acquired absence of both cervix and uterus; Z82.49 Family history of ischemic heart disease and other diseases of the circulatory system; Z80.9 Family history of malignant neoplasm, unspecified; Z82.3 Family history of stroke; Z87.440 Personal history of urinary (tract) infections; Z79.899 Other long term (current) drug therapy

== ENCOUNTER 2019-01-27 20:36 | Inpatient (IN) | payer MEDICARE, OTHER, MEDICAID ==
[~2019-01-27] VITALS: Ht 154.9 cm; Wt 40.9 kg
--- NOTE | ~2019-01-27 | EKG ---
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
[~2019-01-27 20:36] MED LIST changes: +K-TAB20 MEQ PO; +MACRODANTIN100 M1 PO; +MILK OF MA400 MG/5 M PO; +PAIN RELIEVER325 MG PO
[2019-01-27 20:37] VITALS: BP 147/58
--- NOTE | 2019-01-27 21:26 | NUR ---
XRAY AT BEDSIDE.
[2019-01-27 21:50] LABS: BASO # 0.1 10*3/uL (0.0-0.1); BASO % 0.5 % (0.0-1.0); EOS # 0.1 10*3/uL (0.0-0.4); EOS % 0.9 % (1.0-4.0); HEMATOCRIT 36.6 % (37.0-47.0); HEMOGLOBIN 11.4 g/dl (12.0-16.0); MEAN CELL VOLUME 94.8 fl (81.0-99.0); MEAN CORPUSCULAR HGB 29.5 pg (27.0-31.0); MEAN CORPUSCULAR HGB CONC 31.1 g/dl (33.0-37.0); MEAN PLATELET VOLUME 8.6 fl (9.6-12.3); MONO # 1.1 10*3/uL (0.1-1.0); MONO % 8.1 % (3.0-9.0); NEUT # 9.9 10*3/uL (2.3-7.9); PLATELET COUNT AUTOMATED 472 10*3/uL (130-400); RED BLOOD COUNT 3.86 10*6/uL (4.10-5.10); RED CELL DISTRI WIDTH 13.2 % (0-14.5); WHITE BLOOD COUNT 13.1 10*3/uL (4.8-10.8)
[2019-01-27 22:01] LABS: ACT PARTIAL THROMBO TIME 28.5 SECONDS (20.0-32.1)
[2019-01-27 22:07] LABS: ALBUMIN 2.9 gm/dl (3.1-4.5); ALKALINE PHOSPHATASE 106 U/L (45-117); BUN 20 mg/dl (7-24); CHLORIDE 106 mmol/L (98-107); CREATININE 0.67 mg/dL (0.55-1.02); LIPASE 68 U/L (73-393); POTASSIUM 4.2 mmol/L (3.5-5.1); SGOT/AST 15 IU/L (3-35); SGPT/ALT 9 U/L (12-78); SODIUM 137 mmol/L (136-145); TOTAL PROTEIN 7.6 gm/dL (6.4-8.2); TROPONIN I 0.018 ng/ml (<0.045)
--- NOTE | 2019-01-27 22:17 | NUR ---
MD CHILDERS ADVISES SHE SPOKE WITH LAB AND WAS GIVEN CRITICAL LACTIC ACID LEVEL RESULT OF 3.0.JAZMYN MATHEWS NOTIFIED.
[2019-01-27 23:06] LABS: BILIRUBIN NEGATIVE (NEGATIVE); BLOOD NEGATIVE (NEGATIVE); CLARITY CLEAR (CLEAR); COLOR YELLOW (YELLOW); GLUCOSE NEGATIVE (NEGATIVE); KETONE NEGATIVE (NEGATIVE); LEUKO ESTERASE NEGATIVE (NEGATIVE); NITRITE NEGATIVE (NEGATIVE); SPECIFIC GRAVITY 1.015 (1.005-1.030); UROBILINOGEN 0.2 E.U./dl (0.2-1.0)
[2019-01-27 23:42] LABS: WBC 0-2 wbc/hpf (0-5)
--- NOTE | 2019-01-28 00:13 | NUR ---
IN TO DISCUSS TEST RESULTS AND DISPOSITION WITH PT
--- NOTE | 2019-01-28 00:20 | NUR ---
MANDY CALLED AND PROVIDED UPDATE ON PT.
[2019-01-28 01:07] VITALS: BP 130/41
--- NOTE | 2019-01-28 01:15 | NUR ---
MRSA SWAB COLLECTED,LABELD AND SENT TO LAB.
[2019-01-28 01:30] VITALS: BP 98/72
--- NOTE | 2019-01-28 01:30 | NUR ---
A 84, admitted to 5E, under the services of KEEGAN Callahan DO with a diagnosis of CLOSED HEAD INJURY, FALL, SIRS. Chief complaint is FALL. Patient arrived via bed from ER. Monitor applied. Initial assessment completed. Vital signs taken and recorded. KEEGAN CALLAHAN DO notified of admission to the unit. Orders received. See assessment for past medical history, medications and allergies. Patient and/or family oriented to unit. [address] [facility] visitation policy reviewed. Clothing/patient valuable form completed. ALMA ROSA DUENAS
[2019-01-28] MEDS ORDERED: MORPHINE S20 MG/1 M1 PO (02:17)
[2019-01-28] MEDS ORDERED: NORCO 5-325 TA1 EACH PO (02:19)
[2019-01-28] MEDS ORDERED: ZOFRAN4 MG PO (02:21)
--- NOTE | 2019-01-28 02:27 | NUR ---
DR. MINA NOTIFIED OF COMPLETE MED REC. ALSO NOTIFIED OF NEED FOR WOUND ORDERS.
--- NOTE | 2019-01-28 06:00 | NUR ---
DR. SIGALA CALLED TO CLARIFY WOUND ORDERS. ORDERED TO PUT HYDROGEL ON FOR NOW. CONTINUE TO ASSESS.
[2019-01-28 08:00] VITALS: BP 153/47
[2019-01-28 12:00] VITALS: BP 142/53
--- NOTE | 2019-01-28 14:00 | NUR ---
Spoke with patients son and [id number]. The family is requesting that she be assessed for depression, dementia/alzheimers. The family has noticed a progressive decline. Patients son Edgard [id number] Jil
[2019-01-28 16:00] VITALS: BP 168/66
--- NOTE | 2019-01-28 17:45 | NUR ---
Patient was encouraged to feed herself with assistance from staff when neccessary. Patient held her fork with her right hand, she held her own glass and drank. Patient was encouraged to assist staff during christi care and move extremities w/minimal help by staff. Patient tolerated well.
[2019-01-28 20:00] VITALS: BP 158/67
[2019-01-29] VITALS: BP 161/61
--- NOTE | 2019-01-29 06:15 | NUR ---
PATIENT RESTING WITH EYES CLOSED AT THIS TIME. RESPIRATIONS EASY AND UNLABORED. BED ALARM ON, CALL LIGHT WITHIN REACH. WILL MONITOR.
[2019-01-29 07:15] LABS: BASO # 0.1 10*3/uL (0.0-0.1); BASO % 0.5 % (0.0-1.0); EOS # 0.1 10*3/uL (0.0-0.4); EOS % 0.8 % (1.0-4.0); HEMATOCRIT 28.9 % (37.0-47.0); HEMOGLOBIN 9.4 g/dl (12.0-16.0); LYMPH # 1.9 10*3/uL (1.3-4.4); LYMPH % 17.1 % (27.0-41.0); MEAN CORPUSCULAR HGB 29.4 pg (27.0-31.0); MEAN CORPUSCULAR HGB CONC 32.5 g/dl (33.0-37.0); MEAN PLATELET VOLUME 9.1 fl (9.6-12.3); MONO # 0.7 10*3/uL (0.1-1.0); MONO % 6.1 % (3.0-9.0); NEUT # 8.3 10*3/uL (2.3-7.9); NEUT % 75.1 % (47.0-73.0); PLATELET COUNT AUTOMATED 363 10*3/uL (130-400); RED CELL DISTRI WIDTH 13.2 % (0-14.5); WHITE BLOOD COUNT 11.1 10*3/uL (4.8-10.8)
[2019-01-29 07:22] LABS: MEAN CELL VOLUME 90.3 fl (81.0-99.0)
[2019-01-29 07:29] LABS: BUN 16 mg/dl (7-24); CHLORIDE 107 mmol/L (98-107); CHOLESTEROL 188 mg/dL (<200); CREATININE 0.45 mg/dL (0.55-1.02); HDL CHOLESTEROL 36 mg/dl (40-60); LDL CHOLESTEROL 132 mg/dL (9-159); PHOSPHOROUS 2.8 mg/dL (2.5-4.9); POTASSIUM 3.7 mmol/L (3.5-5.1); SODIUM 138 mmol/L (136-145); TRIGLYCERIDES 101 mg/dl (<150); VLDL CHOLESTEROL 20 mg/dL (6-40)
[2019-01-29 07:37] LABS: FREE T4 1.09 ng/dl (0.76-1.46)
--- NOTE | 2019-01-29 07:53 | NUR ---
MARI NAVARRO [id number] Please refer to the physician's history and physical for past medical history, comorbid conditions, and allergies. Diagnosis: CLOSED HEAD INJURY, SIRS, FALL Tom Score: 12,HIGH RISK WOUND DESCRIPTIONS: Wound Number: 1 Location of the wound: right side of face near eyebrow Type of wound: laceration Thickness: Full Size: 1.5cm x 0.3cm x 0.1cm Tunneling: none Undermining: none Sinus Tract: none Presence of Exudate: Serous Amount: Light Color: Red to proximal end, white towards distal end Odor: None Periwound Skin Appearance: Normal Wound edges: approximated Pain (associated with wound): none at time of assessment How does patient state this happened? pt stated this is from a fall Surface the patient is resting on: Isoflex SKIN PREVENTION RECOMMENDATION: 1. Pressure redistribution support surface as appropriate 2. Elevate heels 3. Remove boots/TEDS every shift and reapply 4. Head of bed 30 degrees as tolerated 5. Assess nutrition and hydration 6. Manage moisture 7. Avoid the use of containment devices while in bed 8. Use absorptive products on surfaces limit layers of linens on bed 9. Turn and reposition every 1-2 hours in bed and every 1 hour in chair as tolerated 10. Weight shifts every 15 minutes while up in chair 11. Offloading with pillows or device to keep heels elevated off bed 12. Monitor skin at least every shift 13. Inspect under medical devices twice a day WOUND TREATMENT RECOMMENDATIONS: Full thickness guidelines: Cleanse right side of face near eyebrow with nss and apply therahoney and cover with bandaid daily
[2019-01-29 08:00] VITALS: BP 158/50
--- NOTE | 2019-01-29 08:08 | NUR ---
Recommend follow up for wound care in outpatient setting patient refused at this time.
[2019-01-29 08:18] LABS: VITAMIN D, 25-HYDROXY 27.2 ng/mL (30-100)
--- NOTE | 2019-01-29 09:00 | NUR ---
[employer] in to see patient. She is a LTC resident at [facility]. She states she is ambulatory and does NOT use O2. When medically stable she will be discharged to [facility]. forestry worker following.
--- NOTE | 2019-01-29 09:02 | NUR ---
Dr. Liz notified of wound care recommendations.
--- NOTE | 2019-01-29 09:23 | NUR ---
PHYSICAL THERAPY Physical therapy evaluation complete, 5E. Full evaluation/details to follow. Moderate complexity PT evaluation per chart review and evaluation (06187.) PT to progress to with mobility, transfers, and LE exercises per POC. Recommend SNF at discharge. Thank you. Trice Gardner,PT,DPT
--- NOTE | 2019-01-29 09:54 | NUR ---
Occupational therapy orders received and OT evaluation and POC completed in full on floor five with full evaluation to follow. Patient precautions include fall risk, generalized weakness, contractures, and bed alarm. Per OT evaluation and chart review, OT recommends patient discharge to SNF. Patient would benefit from continued OT treatment to maximize safety, independence, and participation in ADLs and functional mobility/transfers. Patient complexity is moderate, [id number]. Thank you for the referral. Shaina Armstrong, OTR/L
[2019-01-29 12:00] VITALS: BP 132/45
[2019-01-29] MEDS ORDERED: NATURE'S BLEND F1 MG PO (12:22)
[2019-01-29] MEDS ORDERED: VITAMIN D32000 UNI1 PO (12:22)
--- NOTE | 2019-01-29 13:16 | NUR ---
AIR BRAKE OPERATOR was notified of the patient being discharged. AIR BRAKE OPERATOR spoke with with Lara. AIR BRAKE OPERATOR reached out to [facility] to schedule transportation for the patient to return to [place]. AIR BRAKE OPERATOR spoke [facility] who stated they could transport the patient at 4pm today. AIR BRAKE OPERATOR notified Lara and [facility]. AIR BRAKE OPERATOR reached out to the patients son, Bill, and left a voice message asking for a return call. AIR BRAKE OPERATOR faxed all updates and discharge orders to [facility]. -JOSEPH Bautista
--- NOTE | 2019-01-29 13:53 | NUR ---
FLU SHOT GIVEN DISCHARGE PICTURES OF RIGHT EYEBROW LACERATION TAKEN FAMILY AWARE OF TRANSFER BACK TO [facility]
--- NOTE | 2019-01-29 14:19 | NUR ---
[facility]
--- NOTE | 2019-01-29 15:06 | NUR ---
EST[facility] FOR RIGHT KNEE PAIN
--- NOTE | 2019-01-29 16:11 | NUR ---
Discharge instructions reviewed with patient/family. Patient receptive and verbalizes understanding. Written instructions given to patient/family. DISCHARGE COPMLETED BY PRIOR NURSE. [facility] P/U AT THIS TIME. KOBI JAMES
--- NOTE | 2019-02-02 16:34 | NUR ---
PHYSICAL THERAPY CO-SIGN I approve of the Physical Therapy notes written above. GIOVANNI WRIGHT, PT, DPT
== END 2019-01-29 16:11 | disposition hospice, home (50) | DRG 913 ==
LOC: ED 20:36 → 5E 01-28 00:47 → EDHOLD 01-28 00:47 → 5E 01-28 00:58
PROVIDERS: Internal Medicine; Nurse Practitioner Family; ADMIT Internal Medicine
DX: S09.90XA Unspecified injury of head, initial encounter (principal); E43 Unspecified severe protein-calorie malnutrition; R65.10 Systemic inflammatory response syndrome (SIRS) of non-infectious origin without acute organ dysfunction; E87.2 Acidosis; I25.10 Atherosclerotic heart disease of native coronary artery without angina pectoris; E78.5 Hyperlipidemia, unspecified; F41.9 Anxiety disorder, unspecified; D72.829 Elevated white blood cell count, unspecified; D47.3 Essential (hemorrhagic) thrombocythemia; R73.9 Hyperglycemia, unspecified; I10 Essential (primary) hypertension; R00.0 Tachycardia, unspecified; W18.39XA Other fall on same level, initial encounter; Z95.5 Presence of coronary angioplasty implant and graft; Z88.2 Allergy status to sulfonamides; Z88.8 Allergy status to other drugs, medicaments and biological substances; Z79.02 Long term (current) use of antithrombotics/antiplatelets; Z86.73 Personal history of transient ischemic attack (TIA), and cerebral infarction without residual deficits; I25.2 Old myocardial infarction; Z91.041 Radiographic dye allergy status; Z79.899 Other long term (current) drug therapy; Z90.49 Acquired absence of other specified parts of digestive tract; Z98.891 History of uterine scar from previous surgery; Z82.49 Family history of ischemic heart disease and other diseases of the circulatory system; Z82.3 Family history of stroke; Z80.8 Family history of malignant neoplasm of other organs or systems; Y93.89 Activity, other specified; Y92.89 Other specified places as the place of occurrence of the external cause; Y99.8 Other external cause status; Z66 Do not resuscitate; Z51.5 Encounter for palliative care